=== PATIENT | female | born 1965 | race Caucasian/White ===

== ENCOUNTER 2018-12-05 07:20 | Day surgery (SDC) | payer OTHER ==
[~2018-12-05] VITALS: Ht 167.6 cm; Wt 60.8 kg
--- NOTE | ~2018-12-05 | O ---
Formerly [facility] [place] [address] [place] [address] OPERATIVE REPORT Name: THERESA HOUSE Room #: 150-8 [facility]..#: [id number] Admission: 12/05/18 ������������������ Attend Phys: Jimmy Paniagua MD Discharge: ������������������ Date of : 61 Report #: [id number] THIS REPORT FOR: //name// CC: Jose Paniagua PREOPERATIVE DIAGNOSIS: Lesion of right upper lid with nasolacrimal duct obstruction. POSTOPERATIVE DIAGNOSIS: Lesion of right upper lid with nasolacrimal duct obstruction. PROCEDURE: Excision of lesion of right upper lid with flap repair of defect, silicone lacrimal intubation with nasal surgical video endoscopy. SURGEON: Jimmy Paniagua MD GLOVE OPERATOR: None. ANESTHESIA: General. COMPLICATIONS: None. INDICATIONS FOR SURGERY: This pleasant 53-year-old woman has a cystic lesion overlying the superior canaliculus on her eyelid margin. The lesion was thought to most likely be benign. However, it obstructs the canaliculus. The lesion is being removed today in order to reestablish patent lacrimal outflow and to determine the histologic nature of the lesion. Informed consent was obtained to include but not limited to the potential risk for loss of vision, bleeding, infection, failure to improve the problem, and the potential need for other surgery or treatment including treatment for the rare possibility of lacrimal outflow obstruction that is irreversible. DESCRIPTION OF PROCEDURE: The patient was taken to the operating room where general anesthesia was administered. The left medial canthal area in addition to the left lateral wall of the nose were infiltrated with Xylocaine with epinephrine mixed with Marcaine and Wydase. The patient was subsequently prepped and draped in the usual sterile fashion. The left side of the nose was packed with Afrin-soaked cottonoids. The lesion was then outlined with a fine tip skin marking pen after the patient has been sterilely prepped and draped. Incisions were then made 360 degrees around the base of the lesion as it was dissected off of the underlying canaliculus. Its definition was somewhat vague subcutaneously. The lesion was submitted en-bloc. The overlying tissue superiorly was then undermined to allow an advancement flap to be accomplished. Hemostasis was then re-achieved. The flap was then secured with interrupted 6-0 Formerly [facility] [address] [place] [address] OPERATIVE REPORT Name: THERESA HOUSE Room #: 150-8 [facility].#: [id number] Admission: 12/05/18 ������������������ Attend Phys: Jimym Paniagua MD Discharge: ������������������ Date of : 61 Report #: [id number] plain gut sutures. The superior and inferior puncta were then dilated with a punctum dilator. A Charles tube was then passed initially through the superior canaliculus and was passed into the nasolacrimal duct atraumatically. It was then passed out the valve of Hasner into the inferior meatus. The cottonoids were removed from the nose. The nasal vault inspected with the video endoscope. A Charles hook was then used to grasp the end of the Charles ball under the inferior turbinate and drawn out the nares. The inferior system was then similarly cannulated. The Charles tubes were secured to themselves with 3 square throws and then to the lateral wall of the nose with one 5-0 Prolene suture. The wound was then cleaned and dressed with erythromycin ointment. The patient subsequently transported to the recovery area having tolerated the procedures well with no anesthetic or operative complications being noted. ��������������������������������������������� ���������������������������������������� By: ��������������������������������������������� [id number] [id number] Jimmy Paniagua MD /nt
[~2018-12-05 07:20] MED LIST: PROBIOTIC1 EAC1 PO; VITAMIN D34000 UNIT PO
[2018-12-05 11:17] VITALS: BP 111/69
--- NOTE | 2018-12-11 16:01 | PATH ---
[facility] [address] [place] [address] PATHOLOGY RPT PROCEDURE Name: THERESA CLAROS Room #: DEP [facility] M.R.#: [id number] ������������������ Admission: 12/05/18 ������������������ Date of : 61 Discharge: 12/05/18 Report #: [id number] Path Case #: [id number] [facility] Accession Number: [id number] . 01 Material submitted: . lid - LEFT UPPER LID LESION. Modifiers: left, upper . 01 Clinical history: . Lesion left upper lid . 02 Diagnosis: Skin, left upper lid lesion: - Nodular dermal fibrosis, - The differential includes benign fibroma or scar. - There is no evidence of malignancy and the lesion appears completely excised. (SHA:kane; 12/10/2018) QMS/12/11/2018 . 02 Electronically signed: . Ten Farah MD, Pathologist NPI- [id number] . 01 Gross description: . The specimen is received in formalin, labeled "Theresa Claros, left upper lid lesion". Received is a shave biopsy measuring 0.5 x 0.5 x 0.2 cm in greatest dimensions. The epidermal surface displays a lesion which is well-circumscribed, raised, flaky and pale landeros measuring 0.5 x 0.5 x 0.1 cm. The surgical margin is inked. The specimen is bisected and entirely submitted in cassette A1. (CAA; 12/06/2018) QAC/QAC . 02 Pathologist provided ICD-10: L90.5 . 02 CPT . 329665 Specimen Comment: A courtesy copy of this report has been sent to Specimen Comment: [phone], . Specimen Comment: Report sent to / DR RAMAN Performed at: [address] [id number] MD Robin Medellin MD Phone: [phone] Performed at: 02 [facility] [address] [place] [address] PATHOLOGY RPT PROCEDURE Name: THERESA CLAROS Room #: DEP [facility] M.R.#: [id number] ������������������ Admission: 12/05/18 ������������������ Date of : 61 Discharge: 12/05/18 Report #: [id number] Path Case #: [id number] [address] [place] [id number] MD Kim Daugherty MD Phone: [phone]
== END 2018-12-05 13:30 | disposition home or self-care (01) ==
LOC: TBA 07:20 → OR 07:20 → TBA 07:21 → OR 10:28
DX: H04.551 Acquired stenosis of right nasolacrimal duct (principal); L90.5 Scar conditions and fibrosis of skin; H02.89 Other specified disorders of eyelid; Z98.890 Other specified postprocedural states
CPT/HCPCS: 50010; 50101; 50386; 50398; 51636; 51777; 56528; 56531; 62110; 62900; 64037; 70005